=== PATIENT | male | born 1990 | race Caucasian/White ===

== ENCOUNTER 2017-05-17 01:19 | Inpatient (IN) | payer MEDICAID ==
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
[2017-05-17 01:56] LABS: PLATELET COUNT 316 10^3/uL (150-400)
[2017-05-17] MEDS ORDERED: MUPIROCIN 2% 22 GM OINT TP ONE (10:15)
[2017-05-17] MEDS ORDERED: FLU VACC QS 2017-18 (3YR+)/PF 0.5 ML SYR (FLUARIX QUAD) IM ONE (14:12)
[2017-05-17] MEDS ORDERED: ACETAMINOPHEN 325 MG TAB PO PRN (16:28)
[2017-05-17] MEDS ORDERED: MAG HYDROX/AL HYDROX/SIMETH 30 ML UDCUP PO PRN (16:28)
[2017-05-17] MEDS ORDERED: MAGNESIUM HYDROXIDE 30 ML UDCUP PO PRN (16:28)
[2017-05-17] MEDS ORDERED: OLANZapine DISINTEGR 10 MG TAB PO PRN (16:28)
[2017-05-17] MEDS ORDERED: NICOTINE POLACRILEX 2 MG GUM B PRN (16:28)
[2017-05-17] MEDS ORDERED: LORazepam 0.5 MG TAB PO PRN (16:28)
[2017-05-17] MEDS: MUPIROCIN 2% 22 GM OINT TP SCH (20:27)
--- NOTE | 2017-05-17 21:45 | BCON ---
[f rep st] BEHAVIORAL HEALTH CONSULTATION REFERRING PHYSICIAN: Jefe Jensen MD REASON FOR REFERRAL: Medical clearance for inpatient behavioral health stay. HISTORY OF PRESENT ILLNESS: This patient was brought to the emergency department by police on a mental health hold. He had texted friends that he was suicidal and was going to overdose on propranolol to stop his heart. He had had a conflict with his roommates. He was evaluated by the mental health team and admitted for further psychiatric care. He currently is without any acute medical complaints. PAST MEDICAL HISTORY: 1. Hypertension for which he was taking no medications. 2. Chronic tachycardia, which he believes is congenital. 3. Tonsillectomy. MEDICATIONS: 1. He was prescribed lamotrigine 200 mg p.o. daily. 2. Dextroamphetamine/amphetamine 25 mg p.o. daily. 3. Aripiprazole 20 mg p.o. daily. ALLERGIES: There are no known drug allergies. SOCIAL HISTORY: He is a student at the [employer]. He lives with roommates. He reports he has worked at [employer]. He denies tobacco smoking. He uses alcohol and has used psychedelic substances, cocaine, and marijuana in the past month. FAMILY HISTORY: He reports a family history of hypertension and tachycardia. He reports that his grandfather committed suicide. REVIEW OF SYSTEMS: He reports that he vomited volitionally yesterday in the emergency department. He feels he has a fast heart rate. He denies chest pain or palpitations. He denies fevers or chills. He denies cough or dyspnea, and otherwise a 10-point review of systems is negative. PHYSICAL EXAMINATION: VITAL SIGNS: Blood pressure is 164/90; heart rate is 97 ; respiratory rate is 16; oxygen saturation is 98% on room air. Temperature is 36.7 degrees centigrade. His weight is 88.5 kg for a body mass index of 21.5. GENERAL: This is an overweight appearing man who appears his chronologic age; cooperative and in no acute distress. HEENT: Extraocular movements are intact. Pupils are equal, round, and reactive to light. Mucous membranes are moist. Dentition is in good condition. NECK: Supple. HEART: Regular rate and rhythm with no murmurs, rubs, or gallops. He is not tachycardic. LUNGS: Clear to auscultation bilaterally. ABDOMEN: Benign. EXTREMITIES: There is no cyanosis, clubbing, or edema. NEUROLOGIC: Orientation was not tested. He is alert. Cranial nerves 2-12 are grossly intact. There is no focal weakness. Sensation is intact to light touch and gait is within normal limits. LABORATORY STUDIES: From the emergency department, CBC revealed a slightly high white blood cell count of 9.79. There was an elevation of absolute lymphocytes at 3.41. Serum chemistry revealed an elevated sodium at 150, a low carbon dioxide at 18, and elevated anion gap at 22. Glucose was elevated at 121 ; otherwise, renal function and electrolytes were within normal limits. Toxicology screen in the serum was positive for ethyl alcohol at 109 mg/dL and the urine was non-negative for marijuana and cocaine, but otherwise negative for substances of abuse. ASSESSMENT/RECOMMENDATIONS: 1. Mental health issues pending further evaluation and management per Psychiatry and the mental health team. 2. Elevated blood pressure. Unclear whether this is hypertension, as he also had toxicology screen positive for ethyl alcohol and cocaine, so he may be in a withdrawal state. Advise continued monitoring of blood pressure, and if it remains elevated, he should have followup per primary care. If it remains in the realm of 160s over 90s, this is not acutely dangerous; however, would consider initiating an antihypertensive while he is on the inpatient behavioral health unit. 3. Obesity. Consider avoiding medications which could cause further weight gain; however, psychosocial stabilization takes priority at present. 4. Hypernatremia and anion gap. These are likely due to ethanol ingestion and ethanol metabolites. I have ordered a repeat BMP for the morning and further evaluation can proceed if his laboratory abnormalities persist. 5. Polysubstance abuse. He might benefit from specific substance abuse counseling. I see no medical contraindications to this patient's continued stay on the inpatient behavioral health unit or to any psychiatric medications or procedures. Thank you very much for including me in the care of this patient and please do not hesitate to contact me or the hospitalist service should there be need for further medical evaluation. /[id number]/MODL MTDD
[2017-05-18 06:32] VITALS: BP 119/80; PULSE 81; RESP 14; TEMP 97.6; O2SAT 97
[2017-05-18] MEDS: MUPIROCIN 2% 22 GM OINT TP SCH ×2 (06:55→15:59)
[2017-05-18] MEDS ORDERED: ARIPiprazole 10 MG TAB PO SCH (09:00)
[2017-05-18] MEDS ORDERED: lamoTRIgine 100 MG TAB PO SCH (09:00)
[2017-05-18] MEDS ORDERED: NON-FORMULARY NEW DRUG (Lamotrigine [Lamictal] 200 MG) PO SCH (11:45)
[2017-05-18] MEDS ORDERED: ARIPIPRAZOLE 20 MG PO SCH (11:45)
--- NOTE | 2017-05-18 14:13 | BDS ---
[f rep st] BEHAVIORAL HEALTH DISCHARGE SUMMARY REASON FOR ADMISSION: Patient is a 26-year-old male with a history of bipolar disorder, wh o was admitted due to suicidal ideation. He was admitted for standard evaluation and treatment, but his insurance company stated he had to be transferred to [facility]. He was, therefore, transfe rred to [facility] without full workup or initiation of any treatment other than continuing his home meds. /[id number]/MODL
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
== END 2017-05-18 16:45 | DRG 885 ==
LOC: EEVIPCON 01:19 → BBEH 12:59
PROVIDERS: ADMIT Psychiatry & Neurology Psychiatry; ATTEND Psychiatry & Neurology Psychiatry
DX: F31.81 Bipolar II disorder (principal); R45.851 Suicidal ideations; F12.20 Cannabis dependence, uncomplicated; L01.00 Impetigo, unspecified; F10.20 Alcohol dependence, uncomplicated; F14.90 Cocaine use, unspecified, uncomplicated; I10 Essential (primary) hypertension; R00.0 Tachycardia, unspecified; E11.9 Type 2 diabetes mellitus without complications; E87.0 Hyperosmolality and hypernatremia; Z91.14 Patient's other noncompliance with medication regimen; Z23 Encounter for immunization
CPT/HCPCS: 80305; G0008; G0480